=== PATIENT | male | born 1965 | race Asian ===

== ENCOUNTER 2018-11-03 09:56 | Outpatient (CLI) | payer OTHER ==
--- NOTE | 2018-11-03 16:15 | Diagnostic Imaging Report ---
Indications:Right elbow pain Technique: Three or 4 views of the right elbow Comparison: None Findings: No acute fractures. No dislocations. No effusions. The joint spaces are preserved. Impression: Negative
== END 2018-11-03 11:56 | disposition home or self-care (01) ==
LOC: RAD 09:56
DX: M25.521 Pain in right elbow (principal)